=== PATIENT | female | born 1980 | race Caucasian/White ===

== ENCOUNTER 2018-05-21 07:55 | Emergency (ER) | payer BC ==
[2018-05-21 08:15] VITALS: BP 139/79
--- NOTE | 2018-05-21 08:35 | UC ---
Complaint Female HPI - HPI Summary HPI Summary: States she started having urinary burning and frequency and left pelvic pain for the past 5 days. She states symptoms appeared about the same time as her menses on 05-16-18. She took a lot of fluids to no avail. Denies chills, fever. She states she had a UTI treated at [facility] and completed course of antibiotics on 05-09-18. States this is very unusual and she does not get UTIs often. - History Of Current Complaint Chief Complaint: UCBackPain Stated Complaint: URINARY Time Seen by Provider: 05/21/18 08:19 Hx Obtained From: Patient Hx Last Menstrual Period: 05/16 ?: No Onset/Duration: Sudden Onset, Lasting Days Timing: Constant, Lasting Hours Severity Initially: Moderate Severity Currently: Severe Pain Intensity: 8 Character: Dull, Burning, Cramping Aggravating Factor(s): Coughing Alleviating Factor(s): Position Associated Signs And Symptoms: Positive: Back Pain, Nausea - Risk Factors Ectopic Risk Factor: Negative Ovarian Torsion Risk Factor: Negative - Allergies/Home Medications Allergies/Adverse Reactions: Allergies Allergy/AdvReac Type Severity Reaction Status Date / Time No Known Allergies Allergy Verified 05/21/18 08:16 Home Medications: Home Medications Desogestrel-Ethinyl Estradiol [Isibloom 0.15-30 mg-Mcg] 1 tab PO DAILY 05/21/18 [History Confirmed 05/21/18] Ibuprofen TAB* [Motrin TAB* 600 MG] 600 mg PO ONCE PRN 05/21/18 [History Confirmed 05/21/18] PMH/Surg Hx/FS Hx/Imm Hx Previously Healthy: Yes - Surgical History Surgical History: Yes - Family History Known Family History: Positive: Hypertension - Social History Alcohol Use: Weekly Alcohol Amount: 5 Substance Use Type: None Smoking Status (MU): Current Some Day Smoker Review of Systems Constitutional: Negative Gastrointestinal: Nausea Genitourinary: Dysuria, Frequency Musculoskeletal: Myalgia All Other Systems Reviewed And Are Negative: Yes Physical Exam Triage Information Reviewed: Yes Appearance: Pain Distress, Obese Vital Signs: Initial Vital Signs Temp 97.8 F 05/21/18 08:06 Pulse 66 05/21/18 08:06 Resp 18 05/21/18 08:06 BP 139/79 05/21/18 08:06 Pulse Ox 99 05/21/18 08:06 Vital Signs Reviewed: Yes Eyes: Positive: Conjunctiva Clear ENT: Positive: Hearing grossly normal, Pharynx normal, Uvula midline Neck: Positive: Supple, Nontender, No Lymphadenopathy Respiratory: Positive: Chest non-tender, Lungs clear, Normal breath sounds, No respiratory distress Cardiovascular: Positive: RRR, No Murmur, Pulses Normal, Brisk Capillary Refill Abdomen Description: Positive: Nontender, No Organomegaly, Soft Musculoskeletal: Positive: Strength Intact, ROM Intact, No Edema Complaint Female Dx - Course Course Of Treatment: CT scan reveals non enhanced mass in liver 4.3cm in diameter for which she needs a follow up MRI or contrast enhanced CT for complete evaluation, patient was informed to follow up with her PCP to continue with further imaging within 1-[address] shows 1x0.3cm stone on distal third of left ureter. Urology consult was called and patient was referred to Dr. Calzada's office at [address] [facility], [address] UA shows presence of blood and leukocytes. Start Macrobid and ibuprofen, zofran as needed for nausea, - Differential Dx/Diagnosis Provider Diagnoses: UTI. Left Urolithiasis Discharge - Sign-Out/Discharge Documenting (check all that apply): Patient Departure - Discharge Plan Condition: Stable Disposition: HOME Prescriptions: Ibuprofen TAB* [Motrin TAB* 600 MG] 600 mg PO Q6H PRN #30 tab PRN Reason: Pain Nitrofurantoin Monohyd/M-Cryst [Macrobid 100 mg Capsule] 100 mg PO BID 7 Days # 14 cap Ondansetron ODT TAB* [Zofran 4 MG Odt TAB*] 4 mg PO Q8H PRN #20 tab.odt PRN Reason: Nausea Patient Education Materials: Ondansetron (By mouth), Nitrofurantoin Combination (By mouth), Urinary Tract Infection in Women (DC) Referrals: Arline Hidalgo MD [Primary Care Provider] - - Billing Disposition and Condition Condition: STABLE Disposition: Home
[2018-05-21] MEDS ORDERED: Ondansetron ODT TAB* 4 MG PO ONE (08:36)
[2018-05-21] MEDS ORDERED: Nitrofurantoin Macrocrystals* 50 MG CAP PO ONE (08:47)
[2018-05-21] MEDS ORDERED: HYDROcodone/ACETAMIN 5-325 MG* 1 TAB PO ONE (08:49)
--- NOTE | 2018-05-21 09:09 | RAD ---
CLINICAL HISTORY: left flank pain and dysuria r/o urolithiasis COMPARISON: None TECHNIQUE: Multiple contiguous axial CT scans were obtained of the abdomen and pelvis, without intravenous contrast enhancement. Coronal and sagittal multiplanar reformations are submitted for review. Oral contrast was not administered. FINDINGS: The study is limited by the lack of intravenous contrast. This limits evaluation of the solid organs and vasculature. LUNG BASES: The lung bases are clear. LIVER: There is a 4.3 cm low-attenuation lesion of the left lobe of the liver in segment IVb centered on axial image 48. BILE DUCTS: There is no intrahepatic or extrahepatic biliary dilatation. GALLBLADDER: The gallbladder is normal, without pericholecystic inflammatory change. PANCREAS: The pancreas is normal, without mass or ductal dilatation. SPLEEN: Normal in size and appearance. UPPER GI TRACT: Evaluation of the gastrointestinal tract is limited by incomplete gastric distention. The upper GI tract is unremarkable. SMALL BOWEL AND MESENTERY: The small bowel is normal in contour, course, and caliber. There is no obstruction or dilatation. COLON: The colon is normal in contour, course, caliber. There is no pericolonic inflammatory change. There is a tubular, vermiform, hollow viscus that is blind ending, and originates from the cecum, consistent with a normal appendix. There is no periappendiceal inflammatory change. ADRENALS: Normal bilaterally. KIDNEYS: There is a 1 x 0.3 cm calculus of the distal third of the left ureter with mild hydroureter. There is a nonobstructing calculus of the lower pole of the left kidney measuring 0.2 cm. BLADDER: The bladder is smooth in contour. PELVIC ORGANS: The uterus and adnexa are grossly normal for technique. AORTA: The aorta is normal. IVC: Unremarkable LYMPH NODES: There is no lymphadenopathy by size criteria. ABDOMINAL WALL: There is no evidence for abdominal wall hernia. BONES AND SOFT TISSUES: Unremarkable OTHER: None IMPRESSION: 1. LEFT NEPHROLITHIASIS INCLUDING A CALCULUS OF THE DISTAL LEFT URETER WITH MILD HYDROURETER. 2. 4.3 CM MASS OF THE LEFT LOBE OF THE LIVER. THIS IS INCOMPLETELY EVALUATED ON NONCONTRAST CT. RECOMMEND CONSIDERATION OF MULTIPHASE CONTRAST ENHANCED LIVER PROTOCOL CT VERSUS CONTRAST ENHANCED MRI OF THE ABDOMEN IN THE NONACUTE SETTING.
[2018-05-21] MEDS ORDERED: Ketorolac INJ* 60 MG/2 ML VIAL IM ONE (10:26)
== END 2018-05-21 10:58 | disposition home or self-care (01) ==
LOC: UCCORT 07:55
DX: N39.0 Urinary tract infection, site not specified (principal); N20.9 Urinary calculus, unspecified; B95.7 Other staphylococcus as the cause of diseases classified elsewhere; F17.210 Nicotine dependence, cigarettes, uncomplicated; Z87.440 Personal history of urinary (tract) infections
CPT/HCPCS: 74176; 81003; 87086; 87088; 96372; 99203; A9270-GY; G0463; J1885

== ENCOUNTER 2018-05-21 15:05 | Day surgery (SDC) | payer BC ==
--- NOTE | 2018-05-21 15:10 | HP ---
CC: Dr. Arline Hidalgo* DATE OF ADMISSION AND SURGERY: 05/21/2018. HISTORY OF PRESENT ILLNESS: Ms. Marinelli is a 38-year-old white female who is admitted with a left ureteral calculus, urinary tract infection, for urgent cystoscopy and placement of left ureteral stent. Ms. Marinelli was doing fine until about three weeks ago when she had an episode of cystitis with urgency, frequency, and burning on urination. She had a slight right flank discomfort, but no fever or chills. Two days ago, she developed recurrence of the urinary tract infection symptoms without any fever or chills. This morning, she developed severe left flank pain associated with some nausea, but no fever or chills. The pain was severe and she presented [facility] in [place]. Her urine analysis was positive for red cells and white cells, negative for nitrite. She had a noncontrast CT of the abdomen and pelvis which showed a 10 x 3 mm calculus in the distal third of the left ureter associated with only mild left hydronephrosis. No other abnormalities were noted. The patient was then evaluated in my office . Her vital signs were normal. To check whether the stone is obstructing, she had a renal and full bladder ultrasounds. The study showed mild left hydronephrosis; , there were however no jets noted from the left ureteral orifice. Her urine analysis again showed microscopic hematuria and pyuria. Because of the above history and findings, the absent jets from her left kidney , and the pyuria, the patient is admitted for urgent placement of left ureteral stent in preparation for definitive treatment of the stone. PAST MEDICAL HISTORY AND SYSTEM REVIEW: She denies any past history of renal diseases or calculi. She is in excellent health. She denies any cardiac or pulmonary diseases or symptoms. 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 She has not had any children. PAST SURGICAL HISTORY: She has no previous surgeries. MEDICATIONS: Her only medication is oral contraceptives. ALLERGIES: She has no allergies to medications. PHYSICAL EXAMINATION GENERAL: Moderately overweight, otherwise healthy-looking white female who is in mild to moderate pain. VITAL SIGNS: Blood pressure 130/80, pulse 74, temperature 97, oxygen saturation 98% on room air. HEART: Exam of the heart is normal. LUNGS: Clear. ABDOMEN: She has mild left CVA tenderness. IMPRESSION: 10 x 3 mm calculus in the distal third of the left ureter with mild left hydronephrosis and no jets from the left ureteral orifice on full bladder ultrasound. Urinary tract infection. PLAN: Cystoscopy and placement of left ureteral stent in preparation for definitive treatment of the stone. I discussed the above plans with the patient. All her questions were answered. [id number] #: [id number] MTDD
[2018-05-21] MEDS ORDERED: Iohexol 180 (CONTRAST) 10 ML SDV IV ONE (15:14)
[2018-05-21] MEDS ORDERED: cefTRIAXone(*) 2 GM ADDV.VIAL IVPB ONE (15:17)
[2018-05-21] MEDS ORDERED: Sodium Citrate/Citric Acid* 15 ML UDC ONE (15:37)
[2018-05-21] MEDS ORDERED: fentaNYL* 50 MCG/ML 2 ML VIAL (100 MCG VIAL) ONE (16:13)
[2018-05-21] MEDS ORDERED: Midazolam* 1 MG/ML 2 ML VIAL (2 MG) ONE ×2 (16:14→16:18)
[2018-05-21] MEDS ORDERED: Propofol* 10 MG/ML 20 ML BTL IV PUSH ONE (16:20)
[2018-05-21] MEDS ORDERED: Lidocaine 2% PF * 5 ML VIAL ONE (16:20)
[2018-05-21] MEDS ORDERED: Gentamicin ADULT (*) 40 MG/ML VIAL ONE (16:26)
[2018-05-21] MEDS ORDERED: fentaNYL* 50 MCG/ML 2 ML VIAL (100 MCG VIAL) IV PRN (16:44)
[2018-05-21] MEDS ORDERED: Naloxone* 0.4 MG/ML 1 ML VIAL IV PRN (16:44)
[2018-05-21 17:52] VITALS: BP 131/81
--- NOTE | 2018-05-22 00:31 | OP ---
CC: Dr. Arline Hidalgo; Dr. Chad Norris* OPERATIVE REPORT: DATE OF OPERATION: 05/21/18 - [facility] DATE OF : 78 SURGEON: Chad Norris MD ANESTHESIOLOGIST: Dr. Gaspar. ANESTHESIA: Intravenous sedation. PRE-OP DIAGNOSES: 1. Left hydronephrosis. 2. Calculus, left distal ureter. 3. Possible urinary tract infection. POST-OP DIAGNOSES: 1. Left hydronephrosis. 2. Calculus, left distal ureter. 3. Possible urinary tract infection. OPERATIVE PROCEDURE: Cystoscopy, left retrograde pyelogram, and left ureteral stent insertion. INDICATIONS: Tatiana Marinelli is a 38-year-old lady who was evaluated on an urgent basis because of a large calculus in the left distal ureter and possible associated urinary tract infection. The plan is for urgent left stent insertion to be followed at some point in the near future by ureteroscopy and laser. COMPLICATIONS: None. STENT USED: A 6-British stent, left ureter. POSTOPERATIVE CONDITION: Stable. SPECIMEN: Urine from left kidney for culture and sensitivity. DESCRIPTION OF PROCEDURE: After induction of intravenous sedation and administration of intravenous antibiotics, cystoscopy was performed. The bladder was examined and appeared unremarkable. A guidewire was introduced into the left ureter. Retrograde pyelogram revealed fullness of the left collecting system. A 6- British stent was introduced and positioned under fluoroscopy with good proximal and distal positioning obtained. Prior to this, a urine had been obtained from the left kidney and sent for culture and sensitivity. The bladder was emptied. The patient tolerated the procedure satisfactorily and was transferred back to the recovery area in stable condition. The plan is to continue oral antibiotics and then to bring her back sometime in the next few weeks for ureteroscopy and laser lithotripsy. [id number]/CPS #: [id number] [facility]
--- NOTE | 2018-05-22 07:03 | RAD ---
INDICATION: Left hydronephrosis. COMPARISON: Comparison is made with a prior CT of the abdomen and pelvis from May 21, 2018. TECHNIQUE: 10 seconds of intermittent fluoroscopic guidance were provided and 3 spot films of the abdomen were centered on the left side. FINDINGS: There is partial opacification of the left renal collecting system. Subsequently there is placement of a double-J stent catheter on the left side. The proximal portion of the catheter appears partially uncoiled. IMPRESSION: INTRAOPERATIVE CONTROL FILMS. CPT II Codes: G9500
== END 2018-05-21 18:31 | disposition home or self-care (01) ==
LOC: OR 15:05
PROVIDERS: ATTEND Urology
DX: N13.2 Hydronephrosis with renal and ureteral calculous obstruction (principal); N39.0 Urinary tract infection, site not specified; Z72.0 Tobacco use
CPT/HCPCS: 74420; 81025; 87086; 87088; A9270-GY; C1876; J0696; J1580; J2250; J2704; J3010

== ENCOUNTER 2019-07-27 11:14 | Emergency (ER) | payer BC ==
[2019-07-27] MEDS ORDERED: Tetan/Diph/Pertus SYR(Tdap)* 0.5 ML SYR(BOOSTRIX) use SYR contains LATEX IM ONE (11:47)
--- NOTE | 2019-07-27 12:08 | ED ---
Upper Extremity Pain - HPI Summary HPI Summary: Patient is a 39-year-old female who presents emergency department for an injury to left fourth nail of digit. Patient states she got tips. Pt. got tips put on her nails yesterday for her wedding which is tomorrow. Pt. states she was moving a wooden bench today in preparation when her 4th nail of left hand got caught. Associated sxs of bleeding. Sxs are mild in severity. Last tetanus greater than 10 yrs. ago. Touching nail makes sxs worse. Rest makes sxs better. - History of Current Complaint Chief Complaint: EDExtremityUpper Stated Complaint: FINGER INJURY PER PT Time Seen by Provider: 07/27/19 11:33 Hx Obtained From: Patient Hx Last Menstrual Period: 05/16 - Allergies/Home Medications Allergies/Adverse Reactions: Allergies Allergy/AdvReac Type Severity Reaction Status Date / Time No Known Allergies Allergy Verified 07/27/19 11:21 PMH/Surg Hx/FS Hx/Imm Hx Previously Healthy: Yes Cardiovascular History: Reports: Hx Hypertension - borderline-never treated Denies: Other Cardiovascular Problems/Disorders Respiratory History: Reports: Hx Asthma - had an ihaler as a child Denies: Other Respiratory Problems/Disorders GI History: Denies: Other GI Disorders History: Reports: Hx Kidney Stones - Left ureteral stone, Other Problems/ Disorders - UTI 3 weeks ago, was treated with antibiotics Musculoskeletal History: Reports: Other Musculoskeletal History - Sprained left ankle about 3 weeks ago, still a little sore Sensory History: Reports: Hx Contacts or Glasses - Glasses Denies: Hx Hearing Aid Opthamlomology History: Reports: Hx Contacts or Glasses - Glasses Neurological History: Denies: Other Neuro Impairments/Disorders - Surgical History Surgery Procedure, Year, and Place: Ureteral stent placement- with sedation- Hx Anesthesia Reactions: No Infectious Disease History: No Infectious Disease History: Denies: Traveled Outside the [place] in Last 30 Days - Family History Known Family History: Positive: None, Hypertension, Non-Contributory - Social History Occupation: Employed Full-time Lives: With Family Alcohol Use: Weekly Alcohol Amount: 4-5 drinks per week, usually wine or beer Substance Use Type: Reports: None Smoking Status (MU): Current Some Day Smoker Amount Used/How Often: smokes sometimes, doesn't actually buy cigarettes any more Have You Smoked in the Last Year: Yes Review of Systems Positive: Other - Pain to left 4th digit nail. All Other Systems Reviewed And Are Negative: Yes Physical Exam Triage Information Reviewed: Yes Vital Signs On Initial Exam: Initial Vitals Temp Pulse Resp BP Pulse Ox 97.9 F 91 18 175/114 96 07/27/19 11:17 07/27/19 11:17 07/27/19 11:17 07/27/19 11:17 07/27/19 11:17 Vital Signs Reviewed: Yes Appearance: Positive: Well-Appearing - Patient sitting on bed in no acute distress. Friend present. Skin: Positive: Warm, Dry Head/Face: Positive: Normal Head/Face Inspection Eyes: Positive: Normal, EOMI Neck: Positive: Supple Musculoskeletal: Positive: Other - Fourth nail left hand loose at the end with small amount of bleeding. small avulsion to the lateral nail. Nail bed intact. Patient has no bony tendernessrange of motion of digit. Neurological: Positive: Normal, CN Intact II-III Procedures - Procedure Summary Procedure Summary: Wound care: Small avulsion noted to the lateral aspect of nail that was clipped off. Wound was cleaned with Hibiclens and sterile dressing placed. Finger splint placed for protection and comfort. - Sedation Patient Received Moderate/Deep Sedation with Procedure: No Diagnostics - Vital Signs Vital Signs Temp Pulse Resp BP Pulse Ox 07/27/19 11:17 97.9 F 91 18 175/114 96 - Laboratory Lab Statement: Any lab studies that have been ordered have been reviewed, and results considered in the medical decision making process. Course/Dx - Course Course Of Treatment: Patient with avulsion to left fourth finger nail. Nail is in place. Wound care as noted above. Patient has no bony tenderness and x-ray not ordered. Tetanus was updated. Advised patient to keep nail in place and clean and dry. Follow-up with PCP and return for signs of infection. Patient understands and agrees with plan. - Diagnoses Differential Diagnosis/HQI/PQRI: Positive: Contusion, Fracture (Closed), Laceration Provider Diagnoses: Nail avulsion Discharge ED - Sign-Out/Discharge Documenting (check all that apply): Patient Departure - Discharge Plan Condition: Improved Disposition: HOME Patient Education Materials: Nail Avulsion (ED) Referrals: Arline Hidalgo MD [Primary Care Provider] - Additional Instructions: Keep nail clean and dry Tylenol or Motrin for pain as directed Splint for comfort Return to ER for redness, swelling, yellow drainage or if concerned - Billing Disposition and Condition Condition: IMPROVED Disposition: Home - Attestation Statements Provider Attestation: I was available for consult. This patient was seen by the OLIVERIO. The patient was not presented to, seen by, or examined by me. Ton Flores MD
[2019-07-27 12:31] VITALS: BP 159/109
== END 2019-07-27 12:30 | disposition home or self-care (01) ==
LOC: ED 11:14
DX: S61.305A Unspecified open wound of left ring finger with damage to nail, initial encounter (principal); Z23 Encounter for immunization; W23.0XXA Caught, crushed, jammed, or pinched between moving objects, initial encounter; Y92.9 Unspecified place or not applicable; F17.200 Nicotine dependence, unspecified, uncomplicated
CPT/HCPCS: 90471; 90715; 99282